=== PATIENT | female | born 1980 | race Caucasian/White ===

== ENCOUNTER 2019-05-13 09:05 | Emergency (ER) | payer OTHER ==
[~2019-05-13] VITALS: Ht 170.2 cm; Wt 78.5 kg
[2019-05-13 09:23] VITALS: Ht 170.2 cm; Wt 78.5 kg
[2019-05-13 10:45] VITALS: BP 116/70
== END 2019-05-13 10:45 | disposition home or self-care (01) ==
LOC: ED 09:05
DX: S92.501A Displaced unspecified fracture of right lesser toe(s), initial encounter for closed fracture (principal); W22.8XXA Striking against or struck by other objects, initial encounter; Y93.89 Activity, other specified; Y92.89 Other specified places as the place of occurrence of the external cause; Y99.8 Other external cause status
CPT/HCPCS: Q0092